=== PATIENT | male | born 1980 | race Caucasian/White ===

== ENCOUNTER 2017-03-03 17:27 | Emergency (ER) | payer SELFPAY ==
[~2017-03-03] VITALS: Ht 175.3 cm; Wt 70.0 kg
[~2017-03-03 17:27] MED LIST: ADVI200C9 PO; ZITH250T PO
[2017-03-03 17:28] VITALS: BP 161/98; PULSE 87; RESP 17; TEMP 97.8; O2SAT 99
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
[2017-03-03] MEDS ORDERED: IBUP800T23 PO (18:07)
[2017-03-03] MEDS ORDERED: CYCL1TAB29 PO (18:07)
[2017-03-03] MEDS ORDERED: IBUPROFEN 800 MG TAB PO ONE (18:15)
== END 2017-03-03 18:19 | disposition home or self-care (01) ==
LOC: EDTENT 17:27
DX: S39.012A Strain of muscle, fascia and tendon of lower back, initial encounter (principal); X50.9XXA Other and unspecified overexertion or strenuous movements or postures, initial encounter
CPT/HCPCS: 99283

== ENCOUNTER 2017-08-28 21:22 | Emergency (ER) | payer OTHER ==
[~2017-08-28] VITALS: Ht 175.3 cm; Wt 72.0 kg
[~2017-08-28 21:22] MED LIST changes: -ADVI200C9 PO; +CYCL10TA PO; +IBUP1TAB7 PO; -ZITH250T PO
[2017-08-28 23:01] VITALS: BP 143/102; PULSE 73; RESP 18; TEMP 97.5; O2SAT 98
[2017-08-28 23:45] VITALS: BP 133/82; PULSE 67; RESP 15; O2SAT 98
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
[2017-08-29] MEDS ORDERED: IBUP-232 PO (01:08)
== END 2017-08-29 01:26 | disposition home or self-care (01) ==
LOC: NEPD 21:22
DX: S00.83XA Contusion of other part of head, initial encounter (principal); S80.12XA Contusion of left lower leg, initial encounter; M54.5 Low back pain; V29.9XXA Motorcycle rider (driver) (passenger) injured in unspecified traffic accident, initial encounter
CPT/HCPCS: 70450; 70486; 72100; 73502; 73560; 73590